=== PATIENT | female | born 1950 | race Caucasian/White ===

== ENCOUNTER 2019-08-20 08:54 | Day surgery (SDC) | payer MEDICARE, OTHER ==
[~2019-08-20 08:54] MED LIST: Lactated Ringers 1,000 ML IV SCH; Lidocaine 1%/Sod Bicarbonate in NS 8.4% 1 ML Syringe IDERM PRN; Sodium Chloride 0.9% 10 ML Syringe FLUSH PRN
--- NOTE | 2019-08-20 09:46 | PCM.PREANE ---
Preanesthetic Assessment - Anesthesia/Transfusion/Family Hx Anesthesia History: Prior Anesthesia Without Reaction Family History of Anesthesia Reaction: No Transfusion History: No Prior Transfusion(s) Intubation History: Unknown - Review of Systems General: No Symptoms Pulmonary: No Symptoms Cardiovascular: No Symptoms Gastrointestinal: No Symptoms Neurological: No Symptoms (history of motion sickness and vertigo) Other: Reports: Easy Bruising, Thyroid Problems (hyporthyroid) - Physical Assessment NPO Status Date: 08/19/19 NPO Status Time: 20:00 Vital Signs: HR: 59 BP: 132/67 Sat: 99% Temp: 97 Resp: 16 Height: 1.57 m Weight: 68 kg ASA Class: 2 Mental Status: Alert & Oriented x3 Airway Class: Mallampati = 2 Dentition: Reports: Normal Dentition, Caries Thyro-Mental Finger Breadths: 3 Mouth Opening Finger Breadths: 3 ROM/Head Extension: Full Lungs: Clear to Auscultation, Normal Respiratory Effort Cardiovascular: Regular Rate, Regular Rhythm, No Murmurs - Lab Values: Laboratory Last Values MRSA (PCR) Negative 08/15/19 13:38 All labs reviewed and noted and within acceptable ranges to proceed with scheduled procedure. - Imaging/EKG Impressions: EKG: SR rate=56 CXR: negative - Allergies Allergies/Adverse Reactions: Allergies Allergy/AdvReac Type Severity Reaction Status Date / Time No Known Allergies Allergy Verified 08/19/19 16:42 - Anesthesia Plan Pre-Op Medication Ordered: None - Acknowledgements Anesthesia Type Planned: MAC Pt an Appropriate Candidate for the Planned Anesthesia: Yes Alternatives and Risks of Anesthesia Discussed w Pt/Guardian: Yes Pt/Guardian Understands and Agrees with Anesthesia Plan: Yes PreAnesthesia Questionnaire HEENT History: Reports: Impaired Vision Cardiovascular History: Reports: Other (See Below) Other Cardiovascular History: Hypotension Respiratory History: Reports: None Gastrointestinal History: Reports: Irritable Bowel Syndrome Genitourinary History: Reports: None 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: Musculoskeletal History: Reports: Other (See Below) Other Musculoskeletal History: Rib fracture Neurological History: Reports: None Psychiatric History: Reports: None Endocrine/Metabolic History: Reports: Hypothyroidism Hematologic History: Reports: None Immunologic History: Reports: None Oncologic (Cancer) History: Reports: None Dermatologic History: Reports: None - Past Surgical History Head Surgeries/Procedures: Reports: None HEENT Surgical History: Reports: None Cardiovascular Surgical History: Reports: None Respiratory Surgical History: Reports: None GI Surgical History: Reports: Colonoscopy Female Surgical History: Reports: Hysterectomy Endocrine Surgical History: Reports: None Neurological Surgical History: Reports: None Musculoskeletal Surgical History: Reports: None Oncologic Surgical History: Reports: None Dermatological Surgical History: Reports: None - SUBSTANCE USE Smoking Status *Q: Never Smoker Tobacco Use Within Last Twelve Months: No Second Hand Smoke Exposure: No Recreational Drug Use History: No - HOME MEDS Home Medications: Home Meds Aspirin [Halfprin] 81 mg PO DAILY 08/19/19 [History] Calcium Citrate 600 mg PO DAILY 08/19/19 [History] Cholecalciferol (Vitamin D3) [Vitamin D3] 1,000 unit PO DAILY 08/19/19 [History] Ferrous Sulfate [Iron] 325 mg PO DAILY 08/19/19 [History] Fish Oil/[place]-3 Fatty Acids [Fish Oil 1,000 MG] 1,000 mg PO DAILY 08/19/19 [ History] Levothyroxine 75 mcg PO ACBREAKFAST 08/19/19 [History] Vitamin B Complex 1 tab PO DAILY 08/19/19 [History] - CURRENT (IN HOUSE) MEDS Current Meds: Current Medications Lactated Ringer's (Ringers, Lactated) 1,000 mls @ 125 mls/hr IV ASDIRECTED JESSIE Stop: 08/20/19 23:00 Lidocaine/Sodium Bicarbonate (Buffered Lidocaine 1% In Ns 8.4%) 0.25 ml IDERM ONETIME PRN PRN Reason: Prior to IV Start Stop: 08/20/19 18:00 Sodium Chloride (Saline Flush) 10 ml FLUSH ASDIRECTED PRN PRN Reason: Keep Vein Open Stop: 08/20/19 18:00
[2019-08-20] MEDS ORDERED: Lidocaine 1% 50 ML MDV ONE (11:24)
[2019-08-20] MEDS ORDERED: Bupivacaine 0.25% 10 ML SDV ONE (11:25)
[2019-08-20] MEDS ORDERED: Propofol 200 MG/20 ML SDV ONE (11:33)
[2019-08-20] MEDS ORDERED: Ondansetron 4 MG/2 ML SDV ONE (11:33)
[2019-08-20] MEDS ORDERED: Lidocaine 1% 4 ML ONE (11:33)
[2019-08-20] MEDS ORDERED: fentaNYL 100 MCG/2 ML SDV ONE (11:33)
[2019-08-20] MEDS ORDERED: Midazolam 1 MG/ML 2 ML SDV ONE (11:33)
--- NOTE | 2019-08-20 13:01 | PCM48HPAN ---
Post Anesthesia Note - EVALUATION WITHIN 48HRS OF ANESTHETIC Vital Signs in Normal Range: Yes Patient Participated in Evaluation: Yes Respiratory Function Stable: Yes Airway Patent: Yes Cardiovascular Function Stable: Yes Hydration Status Stable: Yes Pain Control Satisfactory: Yes Nausea and Vomiting Control Satisfactory: Yes Mental Status Recovered: Yes Vital Signs: Last Vital Signs 1254 107/62 56 16 96%
--- NOTE | 2019-08-21 16:31 | PCM.OPNOTE ---
- General Post-Op/Procedure Note Date of Surgery/Procedure: 08/20/19 Operative Procedure(s): left thumb a1 corbin release Pre Op Diagnosis: left thumb stenosing tenosynovitis Post-Op Diagnosis: Same Anesthesia Technique: Local, MAC Primary Surgeon: Dung Linder Anesthesia Provider: Amanda Foster Sales Data Analyst: Marcelina Dumont EBL in mLs: 5 Complications: None Condition: Good
--- NOTE | 2019-08-21 17:10 | OR ---
DATE OF OPERATION: 08/20/2019 SURGEON: Dung Linder MD OPERATION PERFORMED: Left thumb A1 corbin release. PREOPERATIVE DIAGNOSIS: Left thumb stenosing tenosynovitis. POSTOPERATIVE DIAGNOSIS: Left thumb stenosing tenosynovitis. ANESTHESIA: Local MAC. ANESTHESIA PROVIDER: Harini Sanchez. FILE KEEPER: Marcelina Dumont PA-C. ESTIMATED BLOOD LOSS: Less than 5 mL. COMPLICATIONS: None. CONDITION: Stable. DESCRIPTION OF PROCEDURE: The patient was identified in the preoperative holding area. Proper site was marked and identified by surgeon. The patient was taken back to the operating theater where after adequate anesthesia, the patient's left upper extremity was sterilely prepped and draped in the usual sterile fashion. OR time-out was performed. The patient did not receive antibiotics and is not indicated for soft tissue hand procedure. At this time, 1% lidocaine without epinephrine and 0.25% Marcaine without epinephrine were used to anesthetize incisional site over the A1 corbin. Esmarch was then used as a tourniquet on the forearm. Incision was made. Blunt dissection was taken down to the A1 corbin. [place] blade was then used under direct visualization to resect the A1 corbin both proximally and distally and made sure not to get into the A2 corbin. The tendon was identified. There was no need for tenolysis as the patient's tendon showed no adhesions. At this time, adequate saline was irrigated through the wound. A 4- 0 nylon simple suture was used for closure of the skin. The patient had a sterile soft dressing applied and sent to PACU in stable condition. MMODAL /[id number]
== END 2019-08-20 13:58 | disposition home or self-care (01) ==
LOC: JD.SDS 08:54
PROVIDERS: ATTEND Orthopaedic Surgery
DX: M65.312 Trigger thumb, left thumb (principal); E03.9 Hypothyroidism, unspecified; K58.9 Irritable bowel syndrome, unspecified; Z79.82 Long term (current) use of aspirin; Z79.899 Other long term (current) drug therapy
CPT/HCPCS: 26055; 87641; J2001; J2250; J2405; J2704; J3010; J3490; J7120; 01810

== ENCOUNTER 2021-02-22 10:04 | Day surgery (SDC) | payer MEDICARE, OTHER ==
--- NOTE | 2021-02-22 10:14 | PCM.PREANE ---
Preanesthetic Assessment - Procedure Proposed Procedure: left cataract - Anesthesia/Transfusion/Family Hx Anesthesia History: Prior Anesthesia Without Reaction Family History of Anesthesia Reaction: No Transfusion History: No Prior Transfusion(s) Intubation History: Unknown - Review of Systems General: No Symptoms Pulmonary: No Symptoms Cardiovascular: Dyspnea on Exertion Gastrointestinal: No Symptoms Neurological: No Symptoms Other: Reports: Thyroid Problems - Physical Assessment NPO Status Date: 02/21/21 NPO Status Time: 22:00 Vital Signs: 137/76 16 98.8 56 96% Height: 5 ft 2 in Weight: 67.132 kg ASA Class: 2 Mental Status: Alert & Oriented x3 Airway Class: Mallampati = 2 Dentition: Reports: Normal Dentition Thyro-Mental Finger Breadths: 3 Mouth Opening Finger Breadths: 3 ROM/Head Extension: Full Lungs: Clear to Auscultation, Normal Respiratory Effort Cardiovascular: Regular Rate, Regular Rhythm - Allergies Allergies/Adverse Reactions: Allergies Allergy/AdvReac Type Severity Reaction Status Date / Time No Known Allergies Allergy Verified 02/21/21 11:23 - Blood Blood Available: No - Acknowledgements Anesthesia Type Planned: MAC Pt an Appropriate Candidate for the Planned Anesthesia: Yes Alternatives and Risks of Anesthesia Discussed w Pt/Guardian: Yes Pt/Guardian Understands and Agrees with Anesthesia Plan: Yes PreAnesthesia Questionnaire HEENT History: Reports: Impaired Vision Cardiovascular History: Reports: Other (See Below) Other Cardiovascular History: Hypotension Respiratory History: Reports: None Gastrointestinal History: Reports: Irritable Bowel Syndrome Genitourinary History: Reports: None 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: Musculoskeletal History: Reports: Other (See Below) Other Musculoskeletal History: Rib fracture Neurological History: Reports: None Psychiatric History: Reports: None Endocrine/Metabolic History: Reports: Hypothyroidism Hematologic History: Reports: None Immunologic History: Reports: None Oncologic (Cancer) History: Reports: None Dermatologic History: Reports: None - Past Surgical History Head Surgeries/Procedures: Reports: None HEENT Surgical History: Reports: None Cardiovascular Surgical History: Reports: None Respiratory Surgical History: Reports: None GI Surgical History: Reports: Colonoscopy Female Surgical History: Reports: Hysterectomy Endocrine Surgical History: Reports: None Neurological Surgical History: Reports: None Musculoskeletal Surgical History: Reports: None Oncologic Surgical History: Reports: None Dermatological Surgical History: Reports: None - SUBSTANCE USE Tobacco Use Status *Q: Never Tobacco User Tobacco Use Within Last Twelve Months: No Second Hand Smoke Exposure: No Days Per Week of Alcohol Use: 0 Recreational Drug Use History: No - HOME MEDS Home Medications: Home Meds Aspirin [Halfprin] 81 mg PO DAILY 08/19/19 [History] Calcium Citrate 600 mg PO DAILY 08/19/19 [History] Cholecalciferol (Vitamin D3) [Vitamin D3] 1,000 unit PO DAILY 08/19/19 [History] Ferrous Sulfate [Iron] 325 mg PO DAILY 08/19/19 [History] Fish Oil/[place]-3 Fatty Acids [Fish Oil 1,000 MG] 1,000 mg PO DAILY 08/19/19 [History] Levothyroxine 75 mcg PO ACBREAKFAST 08/19/19 [History] Vitamin B Complex 1 tab PO DAILY 08/19/19 [History] - CURRENT (IN HOUSE) MEDS Current Meds: Current Medications Brimonidine Tartrate (Brimonidine 0.2% Ophth Soln 5 Ml Bottle) 0 ml EYELF ASDIRECTED JESSIE Stop: 02/22/21 18:00 Cefuroxime Sodium (Cefuroxime 10 Mg/Ml Syringe) 0 mg EYELF ASDIRECTED JESSIE Stop: 02/22/21 18:00 Lidocaine HCl (Lidocaine 1% Pf 2 Ml Sdv) 0 ml INJECT ASDIRECTED JESSIE Stop: 02/22/21 18:00 Phenylephrine HCl (Phenylephrine 2.5% Ophth Soln 2 Ml Bot) 0 ml EYELF ASDIRECTED JESSIE Stop: 02/22/21 18:00 Pilocarpine HCl (Pilocarpine 4% Ophth Soln 15 Ml Bot) 0 ml EYELF ASDIRECTED JESSIE Stop: 02/22/21 18:00 Polymyxin/Trimethoprim Sulfate (Polymyxin B/Trimethoprim 10 Ml Bottle) 0 ml EYELF ASDIRECTED JESSIE Stop: 02/22/21 18:00 Tetracaine HCl (Tetracaine Hcl/Pf 0.5% 4 Ml Bottle) 0 ml EYEBOTH ASDIRECTED JESSIE Stop: 02/22/21 18:00 Tropicamide (Tropicamide 1% Ophth Soln 15 Ml Bottle) 0 ml EYELF ASDIRECTED JESSIE Stop: 02/22/21 18:00
[2021-02-22] MEDS: Polymyxin B/Trimethoprim 10 ML Bottle EYELF SCH ×4 (10:21→12:43)
[2021-02-22] MEDS: Brimonidine 0.2% Ophth Soln 5 ML Bottle EYELF SCH ×4 (10:26→12:42)
[2021-02-22] MEDS: Phenylephrine 2.5% Ophth Soln 2 ML Bot EYELF SCH ×6 (10:31→12:42)
[2021-02-22] MEDS: Tropicamide 1% Ophth Soln 15 ML Bottle EYELF SCH ×4 (10:36→11:31)
[2021-02-22] MEDS: Tetracaine HCl/PF 0.5% 4 ML Bottle EYEBOTH SCH ×3 (11:49→12:42)
[2021-02-22] MEDS: Lidocaine 1% PF 2 ML SDV INJECT SCH ×2 (12:08→12:42)
[2021-02-22] MEDS: Cefuroxime 10 MG/ML SYRINGE EYELF SCH ×2 (12:19→12:42)
[2021-02-22] MEDS: Pilocarpine 4% Ophth Soln 15 ML Bot EYELF SCH ×2 (12:20→12:43)
== END 2021-02-22 12:34 | disposition home or self-care (01) ==
LOC: JD.SDS 10:04
PROVIDERS: ATTEND Ophthalmology
DX: H25.813 Combined forms of age-related cataract, bilateral (principal); E03.9 Hypothyroidism, unspecified; Z79.82 Long term (current) use of aspirin; Z79.890 Hormone replacement therapy; Z98.890 Other specified postprocedural states
CPT/HCPCS: 66984; J0697; C1780

== ENCOUNTER 2021-03-22 07:09 | Day surgery (SDC) | payer MEDICARE, OTHER ==
[2021-03-22] MEDS: Polymyxin B/Trimethoprim 10 ML Bottle EYERT SCH ×4 (07:13→08:39)
[2021-03-22] MEDS: Brimonidine 0.2% Ophth Soln 5 ML Bottle EYERT SCH ×4 (07:17→08:39)
[2021-03-22] MEDS: Phenylephrine 2.5% Ophth Soln 2 ML Bot EYERT SCH ×6 (07:21→08:12)
--- NOTE | 2021-03-22 07:23 | PCM.PREANE ---
Preanesthetic Assessment - Anesthesia/Transfusion/Family Hx Anesthesia History: Prior Anesthesia Without Reaction Family History of Anesthesia Reaction: No Transfusion History: No Prior Transfusion(s) Intubation History: Unknown - Review of Systems General: No Symptoms Pulmonary: No Symptoms Cardiovascular: No Symptoms Gastrointestinal: No Symptoms Neurological: Gait Disturbance (recently fractured foot, in walking shoe) Other: Reports: Thyroid Problems - Physical Assessment NPO Status Date: 03/21/21 NPO Status Time: 22:00 Height: 1.57 m Weight: 68.039 kg ASA Class: 2 Mental Status: Alert & Oriented x3 Airway Class: Mallampati = 2 Dentition: Reports: Normal Dentition Thyro-Mental Finger Breadths: 3 Mouth Opening Finger Breadths: 3 ROM/Head Extension: Full Lungs: Clear to Auscultation, Normal Respiratory Effort Cardiovascular: Regular Rate, Regular Rhythm - Allergies Allergies/Adverse Reactions: Allergies Allergy/AdvReac Type Severity Reaction Status Date / Time No Known Allergies Allergy Verified 03/21/21 09:42 - Blood Blood Available: No Product(s) Available: None - Acknowledgements Anesthesia Type Planned: MAC Pt an Appropriate Candidate for the Planned Anesthesia: Yes Alternatives and Risks of Anesthesia Discussed w Pt/Guardian: Yes Pt/Guardian Understands and Agrees with Anesthesia Plan: Yes PreAnesthesia Questionnaire HEENT History: Reports: Impaired Vision Cardiovascular History: Reports: Other (See Below) Other Cardiovascular History: Hypotension Respiratory History: Reports: None Gastrointestinal History: Reports: Irritable Bowel Syndrome Genitourinary History: Reports: None 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: Musculoskeletal History: Reports: Other (See Below) Other Musculoskeletal History: Rib fracture Neurological History: Reports: None Psychiatric History: Reports: None Endocrine/Metabolic History: Reports: Hypothyroidism Hematologic History: Reports: None Immunologic History: Reports: None Oncologic (Cancer) History: Reports: None Dermatologic History: Reports: None - Past Surgical History Head Surgeries/Procedures: Reports: None HEENT Surgical History: Reports: None Cardiovascular Surgical History: Reports: None Respiratory Surgical History: Reports: None GI Surgical History: Reports: Colonoscopy Female Surgical History: Reports: Hysterectomy Endocrine Surgical History: Reports: None Neurological Surgical History: Reports: None Musculoskeletal Surgical History: Reports: None Oncologic Surgical History: Reports: None Dermatological Surgical History: Reports: None - SUBSTANCE USE Tobacco Use Status *Q: Never Tobacco User Recreational Drug Use History: No - HOME MEDS Home Medications: Home Meds Levothyroxine 75 mcg PO ACBREAKFAST 03/21/21 [History] - CURRENT (IN HOUSE) MEDS Current Meds: Current Medications Brimonidine Tartrate (Brimonidine 0.2% Ophth Soln 5 Ml Bottle) 0 ml EYERT ASDIRECTED JESSIE Stop: 03/22/21 16:00 Last Admin: 03/22/21 07:17 Dose: 1 drop Documented by: Cefuroxime Sodium (Cefuroxime 10 Mg/Ml Syringe) 0 mg EYERT ASDIRECTED JESSIE Stop: 03/22/21 16:00 Lidocaine HCl (Lidocaine 1% Pf 2 Ml Sdv) 0 ml INJECT ASDIRECTED JESSIE Stop: 03/22/21 16:00 Phenylephrine HCl (Phenylephrine 2.5% Ophth Soln 2 Ml Bot) 0 ml EYERT ASDIRECTED JESSIE Stop: 03/22/21 16:00 Pilocarpine HCl (Pilocarpine 4% Ophth Soln 15 Ml Bot) 0 ml EYERT ASDIRECTED JESSIE Stop: 03/22/21 16:00 Polymyxin/Trimethoprim Sulfate (Polymyxin B/Trimethoprim 10 Ml Bottle) 0 ml EYERT ASDIRECTED JESSIE Stop: 03/22/21 16:00 Last Admin: 03/22/21 07:13 Dose: 1 drop Documented by: Tetracaine HCl (Tetracaine Hcl/Pf 0.5% 4 Ml Bottle) 0 ml EYEBOTH ASDIRECTED JESSIE Stop: 03/22/21 16:00 Tropicamide (Tropicamide 1% Ophth Soln 15 Ml Bottle) 0 ml EYERT ASDIRECTED JESSIE Stop: 03/22/21 16:00
[2021-03-22] MEDS: Tropicamide 1% Ophth Soln 15 ML Bottle EYERT SCH ×4 (07:24→07:51)
[2021-03-22] MEDS: Tetracaine HCl/PF 0.5% 4 ML Bottle EYEBOTH SCH ×3 (08:00→08:25)
[2021-03-22] MEDS: Cefuroxime 10 MG/ML SYRINGE EYERT SCH ×2 (08:06→08:38)
[2021-03-22] MEDS: Lidocaine 1% PF 2 ML SDV INJECT SCH ×2 (08:06→08:26)
[2021-03-22] MEDS: Pilocarpine 4% Ophth Soln 15 ML Bot EYERT SCH ×2 (08:07→08:39)
--- NOTE | 2021-03-22 08:40 | PCM48HPAN ---
Post Anesthesia Note - EVALUATION WITHIN 48HRS OF ANESTHETIC Vital Signs in Normal Range: Yes Patient Participated in Evaluation: Yes Respiratory Function Stable: Yes Airway Patent: Yes Cardiovascular Function Stable: Yes Hydration Status Stable: Yes Pain Control Satisfactory: Yes Nausea and Vomiting Control Satisfactory: Yes Mental Status Recovered: Yes Vital Signs: Last Vital Signs Temp 36.8 C 03/22/21 07:06 Pulse 64 03/22/21 07:06 Resp 17 03/22/21 07:06 BP 122/67 03/22/21 07:06 Pulse Ox 96 03/22/21 07:06
== END 2021-03-22 08:50 | disposition home or self-care (01) ==
LOC: JD.SDS 07:09
PROVIDERS: ATTEND Ophthalmology
DX: H25.811 Combined forms of age-related cataract, right eye (principal); H52.31 Anisometropia; H02.834 Dermatochalasis of left upper eyelid; H02.831 Dermatochalasis of right upper eyelid; H16.223 Keratoconjunctivitis sicca, not specified as Sjogren's, bilateral; Z98.890 Other specified postprocedural states; Z79.899 Other long term (current) drug therapy; Z96.1 Presence of intraocular lens
CPT/HCPCS: 66984; J0697; C1780

== ENCOUNTER 2021-06-12 18:24 | Emergency (ER) | payer MEDICARE, OTHER ==
--- NOTE | 2021-06-12 20:50 | EDM.PDOC ---
ED HPI GENERAL MEDICAL PROBLEM - General Chief Complaint: Respiratory Problem Stated Complaint: COUGH Time Seen by Provider: 06/12/21 20:29 Source of Information: Reports: Patient History Limitations: Reports: No Limitations - History of Present Illness INITIAL COMMENTS - FREE TEXT/NARRATIVE: 70-year-old female presents the emergency department with complaints of fatigue, generalized body aches, sinus congestion and pressure. She states that this has been going on for approximately the past 2 weeks. She states that she was seen at the walk-in clinic 6 days ago. She states at that time she was not tested for Covid. She states she was sent home with an antibiotic and coughs suppressant. She states that this is not helped at all. She states over the course the past 3 days she developed increased cough and shortness of breath. She states she is otherwise healthy. She does have a history of hypothyroidism. She denies any history of smoking. Throat Pain Score (Numeric/FACES): 5 - Related Data Allergies Allergy/AdvReac Type Severity Reaction Status Date / Time No Known Allergies Allergy Verified 06/12/21 19:14 Home Meds: Home Meds Levothyroxine 75 mcg PO ACBREAKFAST 03/21/21 [History] Amoxicillin/Potassium Clav [Amox-Clav 875-125 mg Tablet] 1 tab PO ASDIRECTED 06/12/21 [History] Benzonatate 200 mg PO ASDIRECTED 06/12/21 [History] Past Medical History HEENT History: Reports: Impaired Vision Cardiovascular History: Reports: Other (See Below) Other Cardiovascular History: Hypotension Respiratory History: Reports: None Gastrointestinal History: Reports: Irritable Bowel Syndrome Genitourinary History: Reports: None 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: Musculoskeletal History: Reports: Other (See Below) Other Musculoskeletal History: Rib fracture Neurological History: Reports: None Psychiatric History: Reports: None Endocrine/Metabolic History: Reports: Hypothyroidism Hematologic History: Reports: None Immunologic History: Reports: None Oncologic (Cancer) History: Reports: None Dermatologic History: Reports: None - Past Surgical History Head Surgeries/Procedures: Reports: None HEENT Surgical History: Reports: Cataract Surgery Cardiovascular Surgical History: Reports: None Respiratory Surgical History: Reports: None GI Surgical History: Reports: Colonoscopy Female Surgical History: Reports: Hysterectomy Endocrine Surgical History: Reports: None Neurological Surgical History: Reports: None Musculoskeletal Surgical History: Reports: None Oncologic Surgical History: Reports: None Dermatological Surgical History: Reports: None Social & Family History - Tobacco Use Tobacco Use Status *Q: Never Tobacco User Second Hand Smoke Exposure: No - Caffeine Use Caffeine Use: Reports: Coffee - Recreational Drug Use Recreational Drug Use: No ED ROS GENERAL - Review of Systems Review Of Systems: Comprehensive ROS is negative, except as noted in HPI. ED EXAM, GENERAL - Physical Exam Exam: See Below Exam Limited By: No Limitations General Appearance: Alert, WD/WN, No Apparent Distress Ears: Normal External Exam, Hearing Grossly Normal Ear Exam: Bilateral Ear: TM normal Nose: Normal Inspection Throat/Mouth: Normal Inspection, Normal Lips, Normal Voice, No Airway Compromise Head: Atraumatic Neck: Normal Inspection, Supple Respiratory/Chest: No Respiratory Distress, Normal Breath Sounds, No Accessory Muscle Use, Chest Non-Tender, Crackles (Fine crackles noted to the bilateral bases) Cardiovascular: Normal Peripheral Pulses, Regular Rate, Rhythm, No Edema, No Murmur Peripheral Pulses: 2+: Radial (L), Radial (R) GI/Abdominal: Normal Bowel Sounds, Soft, Non-Tender, No Distention (Female) Exam: Deferred Rectal (Female) Exam: Deferred Back Exam: Normal Inspection Extremities: Normal Inspection Neurological: Alert, Oriented, Normal Cognition Psychiatric: Normal Affect, Normal Mood Skin Exam: Warm, Dry, Intact, Normal Color Lymphatic: No Adenopathy Course - Vital Signs Text/Narrative:: As stated above, patient presents with upper respiratory issues starting approximately 2 weeks ago. Was seen at the walk-in clinic 6 days ago and prescribed an antibiotic and a cough suppressant. She states that this did not help and she feels like she is progressively getting worse. Chief complaint is increased sinus congestion and fullness in her ears. She is hemodynamically stable and afebrile. Physical exam is essentially unremarkable however she does have some fine crackles noted to the bilateral bases. Will obtain a Covid swab and a portable chest x-ray. Last Recorded V/S: Last Vital Signs Temp 97.3 F 06/12/21 19:12 Pulse 74 06/12/21 19:12 Resp 20 06/12/21 19:12 BP 161/84 H 06/12/21 19:12 Pulse Ox 97 06/12/21 19:12 - Orders/Labs/Meds Orders: Active Orders 24 hr Category Date Time Status RT Post Treatment Assessment [RC] Click to Edit Care 10/10/21 22:28 Ordered RT Pre-Treatment Assessment [RC] Click to Edit Care 06/12/21 22:28 Ordered Chest 1V Frontal [CR] Stat Exams 06/12/21 20:49 Taken Albuterol [Proventil HFA] Med 06/12/21 22:27 Ordered 2 gm INH Q2H PRN Medication Orders Albuterol (Albuterol 6.7 Gm Inhaler) 2 gm INH Q2H PRN PRN Reason: Shortness of Breath Labs: Laboratory Tests 06/12/21 06/12/21 Range/Units 19:16 19:16 SARS-CoV-2 RNA ([place]) Negative (NEGATIVE) Group A Strep (PCR) Not detected (NOT DETECT) Meds: Medications Generic Name Dose Route Start Last Admin Trade Name Freq PRN Reason Stop Dose Admin Albuterol 2 gm 06/12/21 22:27 Albuterol 6.7 Gm Inhaler INH Q2H PRN Shortness of Breath - Re-Assessments/Exams Free Text/Narrative Re-Assessment/Exam: 06/12/21 22:12 Nothing acute is appreciated on portable chest x-ray. Patient's Covid swab is negative. 06/12/21 22:12 Group A strep is negative. 06/12/21 22:35 Patient will be discharged home with an albuterol inhaler. Departure - Departure Time of Disposition: 22:35 Disposition: Home, Self-Care 01 Condition: Good Clinical Impression: Viral upper respiratory illness - Discharge Information Instructions: Upper Respiratory Infection, Adult, [id number] Referrals: PCP,None [Primary Care Provider] - Forms: ED Department Discharge Additional Instructions: You were seen in the emergency department for evaluation. Covid and strep throat screen were completed these were both negative. Chest x-ray was also completed and was unremarkable. There is no sign of pneumonia or any infection. You likely have a viral upper respiratory infection causing your sinus congestion and fullness in your ears. You can continue to take the antibiotic you were prescribed earlier. Recommend that you take Sudafed for decongestant. Use it per label instructions. You may also try using a [place] pot as we discussed to flush out your sinuses. This can be purchased at [facility] or any pharmacy. You were given an albuterol inhaler while in the emergency department. You can take 2 puffs every 2 hours as needed for shortness of breath. Keep in mind that if you are consistently using this every 2 hours it can give you the sensation that your heart is racing. Go home and get plenty of rest. Be sure you are drinking plenty of fluids and eating small frequent meals. Should your condition worsen or change, do not hesitate returning to the emergency department. Sepsis Event Note (ED) - Focused Exam Vital Signs: Vital Signs Temp Pulse Resp BP Pulse Ox 06/12/21 19:12 97.3 F 74 20 161/84 H 97 - My Orders Last 24 Hours: My Active Orders 06/12/21 20:49 Chest 1V Frontal [CR] Stat 06/12/21 22:27 Albuterol [Proventil HFA] 2 gm INH Q2H PRN 06/12/21 22:28 RT Post Treatment Assessment [RC] Click to Edit RT Pre-Treatment Assessment [RC] Click to Edit - Assessment/Plan Last 24 Hours: My Active Orders 06/12/21 20:49 Chest 1V Frontal [CR] Stat 06/12/21 22:27 Albuterol [Proventil HFA] 2 gm INH Q2H PRN 06/12/21 22:28 RT Post Treatment Assessment [RC] Click to Edit RT Pre-Treatment Assessment [RC] Click to Edit
[2021-06-12] MEDS ORDERED: Albuterol 6.7 GM Inhaler INH PRN (22:27)
--- NOTE | 2021-06-13 07:34 | CR ---
Chest: Portable view of the chest was obtained. Comparison: Prior chest x-ray of 03/29/17. Heart size is normal. Upper mediastinum is within normal limits. Technique is somewhat dark which causes slight obscuration of the lung wilder. No definite acute parenchymal change is seen within either lung. Bony structures show nothing acute. Impression: 1. Slightly dark technique. Within this limitation, nothing acute is definitely appreciated. Diagnostic code #2
== END 2021-06-12 22:49 | disposition home or self-care (01) ==
LOC: JD.ED 18:24
DX: J06.9 Acute upper respiratory infection, unspecified (principal); E03.9 Hypothyroidism, unspecified; Z79.899 Other long term (current) drug therapy; Z20.822 Contact with and (suspected) exposure to COVID-19
CPT/HCPCS: 71045; 87651; 87804; 94640; 99284; A9270; U0002

== ENCOUNTER 2023-04-08 15:24 | Emergency (ER) | payer MEDICARE, OTHER ==
[2023-04-08] MEDS ORDERED: Meclizine 25 MG Tab PO ONE (15:55)
[2023-04-08] MEDS ORDERED: Aspirin 81 MG Tab.Chew PO ONE (15:55)
[2023-04-08 16:02] LABS: BASOPHILS ABSOLUTE AUTO 0.02 K/mm3 (0.01-0.08); BASOPHILS PERCENT AUTO 0.3 % (0.1-1.2); EOSINOPHILS ABSOLUTE AUTO 0.14 K/mm3 (0.04-0.36); EOSINOPHILS PERCENT AUTO 2.3 (0.7-5.8); IMMATURE GRAN ABSOLUTE AUTO 0.01 K/mm3 (0.00-0.10); IMMATURE GRAN PERCENT AUTO 0.2 % (<=1.0); LYMPHOCYTES ABSOLUTE AUTO 2.31 K/mm3 (1.18-3.74); LYMPHOCYTES PERCENT AUTO 38.7 % (19.3-51.7); MEAN CORPUSCULAR HEMOGLOBIN 31.4 pg (25.6-32.2); MEAN CORPUSCULAR HGB CONC 32.5 g/dl (32.2-35.5); MEAN CORPUSCULAR VOLUME 96.6 fl (79.4-94.8); MEAN PLATELET VOLUME 9.3 fl (9.4-12.3); MONOCYTES PERCENT AUTO 6.7 % (4.7-12.5); NEUTROPHILS ABSOLUTE AUTO 3.09 K/mm3 (1.56-6.13); NEUTROPHILS PERCENT AUTO 51.8 % (34.0-71.1); PLATELET COUNT,PLT 344 K/mm3 (182-369); RED BLOOD CELL COUNT 4.14 M/mm3 (3.98-5.22); WHITE BLOOD CELL COUNT,WBC 5.97 K/mm3 (3.98-10.04)
[2023-04-08 16:31] LABS: ALBUMIN 3.6 g/dl (3.4-5.0); BILIRUBIN TOTAL 0.2 mg/dL (0.2-1.0); CALCIUM 8.7 mg/dL (8.5-10.1); EST CRCL DRUG DOSING (CG) 40.81 mL/min; PROTEIN TOTAL,TP 7.1 g/dl (6.4-8.2)
== END 2023-04-08 17:35 | disposition home or self-care (01) ==
LOC: JD.ED 15:24
DX: R07.89 Other chest pain (principal); R42 Dizziness and giddiness; I10 Essential (primary) hypertension; E03.9 Hypothyroidism, unspecified; Z79.899 Other long term (current) drug therapy
CPT/HCPCS: 36415; 71046; 80053; 84484; 85025; 85379; 93005; 99285; A9270; 93010; 99283

== ENCOUNTER 2025-01-15 10:23 | Emergency (ER) | payer MEDICARE, OTHER ==
[2025-01-15] MEDS: Sodium Chloride 0.9% 500 ML IV ONE (11:26)
[2025-01-15 11:28] LABS: BASOPHILS PERCENT AUTO 0.4 % (0.0-1.0); EOSINOPHILS ABSOLUTE AUTO 0.1 K/mm3 (0.0-0.4); EOSINOPHILS PERCENT AUTO 2.4 % (0.0-6.0); HEMATOCRIT 40.2 % (37.0-47.0); HEMOGLOBIN 13.4 gm/dl (12.0-16.0); IMMATURE GRAN ABSOLUTE AUTO 0.01 K/mm3 (0.00-0.05); IMMATURE GRAN PERCENT AUTO 0.2 % (0.0-0.4); LYMPHOCYTES ABSOLUTE AUTO 1.5 K/mm3 (1.0-4.8); LYMPHOCYTES PERCENT AUTO 29.4 % (24.0-44.0); MEAN CORPUSCULAR HEMOGLOBIN 31.8 pg (28.0-32.0); MEAN CORPUSCULAR HGB CONC 33.3 g/dl (32.0-36.0); MEAN CORPUSCULAR VOLUME 95.3 fl (83.0-99.0); MONOCYTES ABSOLUTE AUTO 0.4 K/mm3 (0.0-0.8); MONOCYTES PERCENT AUTO 7.1 % (0.0-8.0); NEUTROPHILS ABSOLUTE AUTO 3.1 K/mm3 (1.8-7.7); NEUTROPHILS PERCENT AUTO 60.5 % (41.0-71.0); PLATELET COUNT,PLT 282 K/mm3 (150-400); RED BLOOD CELL COUNT 4.22 M/mm3 (4.10-5.30); WHITE BLOOD CELL COUNT,WBC 5.07 K/mm3 (3.9-11.3)
[2025-01-15 11:58] LABS: ALBUMIN 3.3 g/dl (3.4-5.0); BILIRUBIN TOTAL 0.3 mg/dL (0.2-1.0); BUN/CREATININE RATIO 19.1 (14-18); CALCIUM 9.5 mg/dL (8.5-10.1); CREATININE 1.1 mg/dL (0.55-1.02); EST CRCL DRUG DOSING (CG) 36.02 mL/min; PROTEIN TOTAL,TP 6.7 g/dl (6.4-8.2)
[2025-01-15] MEDS: Iopamidol 755 Mg/ML 100 ML Bottle IVPUSH ONE (12:25)
[2025-01-15] MEDS: Sodium Chloride 0.9% 10 ML Syringe FLUSH PRN (12:25)
[2025-01-15] MEDS: Sodium Chloride 0.9% 100 ML IV SCH (12:25)
[2025-01-15 12:29] LABS: APPEARANCE,URINE CLEAR (Clear); BILIRUBIN,URINE NEGATIVE (Negative); COLOR,URINE YELLOW (Yellow); GLUCOSE,URINE NEGATIVE (Negative); KETONES,URINE NEGATIVE (Negative); LEUKOCYTE ESTERASE,URINE TRACE (Negative); NITRITE,URINE NEGATIVE (Negative); OCCULT BLOOD,URINE NEGATIVE (Negative); PROTEIN,URINE NEGATIVE (Negative); UROBILINOGEN,URINE 0.2 (0.2-1.0)
[2025-01-15 13:27] LABS: BACTERIA,URINE NOT SEEN /hpf (FEW); EPITHELIAL CELLS,URINE 0-5 /hpf (0-5); MUCUS,URINE FEW /hpf (FEW); RBC,URINE 0-5 /hpf (0-5); WBC,URINE 0-5 /hpf (0-5)
== END 2025-01-15 13:50 | disposition home or self-care (01) ==
LOC: JD.ED 10:23
DX: E86.9 Volume depletion, unspecified (principal); E03.9 Hypothyroidism, unspecified; Z90.710 Acquired absence of both cervix and uterus; Z79.891 Long term (current) use of opiate analgesic; Z79.899 Other long term (current) drug therapy
CPT/HCPCS: 36415; 71045; 71275; 80053; 81001; 82550; 83690; 83735; 83880; 84484; 85025; 93005; 96360; 99285; J7030; Q9967; 93010; 99283